=== PATIENT | male | born 1965 | race Caucasian/White ===

== ENCOUNTER 2024-10-18 14:02 | Emergency (ER) | payer OTHER, SELFPAY ==
[2024-10-18 14:05] VITALS: BP 142/84
--- NOTE | 2024-10-18 15:41 | ED.GENMED ---
History of Present Illness
General
Chief Complaint: Flank Pain
Time Seen by Provider: 10/18/24 15:31
History of Present Illness
History of Present Illness:
58-year-old male presents the emergency department for evaluation of left flank pain that began yesterday. He notes he had increased indigestion and abdominal discomfort as well as diarrhea for the early part of this week, the symptoms seem to
improve. He attributed the symptoms to his recent increase in Mounjaro dosing. Pain occasionally radiates toward the pelvis, no urinary voiding symptoms. No fevers or chills.
Review of Systems
Review of Systems
Allergies reviewed?: Yes
All Other Systems: ROS reviewed and negative except as documented in HPI and ROS
Phy Exam
Physical Exam
Physical Exam:
GEN: Well appearing, NAD, WDWN
HEENT: Oral mucosa moist, no scleral icterus
Cardiac: Regular rate
Lung: No respiratory distress, no tachypnea
Abdomen: Soft, mild left flank tenderness, no anterior abdominal tenderness
MSK: No gross deformity or injuries
Skin: Good color, no pallor or jaundice, no rashes
Neuro: AO x3, moves all extremities freely
Psych: Calm, cooperative
Course
Orders/Labs/Results
Orders:
Orders
10/18/24 15:48
Ketorolac [Toradol] 15 mg IV NOW STA
10/18/24 15:59
CBC/With Diff [Complete Blood Count/With Diff] Urgent
Comprehensive Metabolic Panel Urgent
Lipase Urgent
10/18/24 16:06
Urinalysis Reflex To Culture Urgent
Date Specimen was Collected: 10/18/24
Time Specimen was Collected: 16:05
Urine Microscopic Reflex Cult Urgent
10/18/24 16:36
CT Abd/pel Without Iv Or Oral Urgent
Comment:
Reason For Exam: L flank pain
Abnormal Lab Results
10/18/24 10/18/24
15:59 16:06
RBC 4.54 L 10^6/uL
(4.70-6.10)
Absolute Monos (auto) 0.7 H 10^3/uL
(0.1-0.6)
Monocytes % 11.3 H %
(1.7-9.3)
Glucose 134 H mg/dl
(70-99)
Urine Ketones 3+ A
(Negative)
Ur Occult Blood Reflex 4+ A
(Negative)
Urine RBC 50-60 A /HPF
(0-2)
Urine Bacteria (Reflex) Few A
(Negative)
Urine Glucose 4+ A
(Negative)
10/18/24 15:59
10/18/24 15:59
Vital Signs
Initial and Last Documented VS:
Initial Vital Signs
Temp Pulse Resp BP Pulse Ox
98.1 F 73 16 142/84 100
10/18/24 14:05 10/18/24 14:05 10/18/24 14:05 10/18/24 14:05 10/18/24 14:05
Last Documented Vital Signs
Temp Pulse Resp BP Pulse Ox
98.1 F 76 18 119/74 96
10/18/24 14:05 10/18/24 17:17 10/18/24 17:17 10/18/24 18:25 10/18/24 17:17
MDM/Problems Addressed
MDM/Problems Addressed:
Imaging reveals a 3 mm distal ureteral stone, patient without signs of urine infection clinically well. Toradol improved his pain dramatically. Will be discharged for expectant management, supportive care discussed
*Critical Care Note
Total Time (30-74mins, 75-104mins- exclusive of procedures): Not Applicable
ED Attending Note
-
Portions of this chart may have been created with voice recognition software.� Occasional wrong word or��sound alike� substitutions may have occurred due to the inherent limitations of voice recognition software.
Discharge Plan
Departure
Patient Disposition: Home (Routine Discharge)
Date of Disposition: 10/18/24
Time of Disposition: 18:07
Patient with high blood pressure during this ER visit?: No
Discharge Problem:
Ureterolithiasis
Instructions: Kidney Stones (DC)
Prescriptions:
New
oxycodone 5 mg tablet
5 mg PO Q8H PRN (Reason: Pain) Qty: 10 0RF
ketorolac 10 mg tablet
10 mg PO Q8H PRN (Reason: Pain) Qty: 15 0RF
Rx Instructions:
maximum total duration of 5 days from all oral, intranasal, or parenteral formulations
tamsulosin [Flomax] 0.4 mg capsule
0.4 mg PO HS Qty: 10 0RF
Referrals:
Otoniel Narvaez DO [Family Provider] -
Interventions
Interventions:
*Risk Screen - Suicide Last Done: 10/18/24 14:06
*General Assessment Last Done: 10/18/24 15:52
*Neglect/Abuse Screening Last Done: 10/18/24 14:06
*ED- Fall Risk Assessment Last Done: 10/18/24 15:52
*ED COVID-19 Vaccine History Last Done: 10/18/24 15:52
*Nursing Disposition Last Done: 10/18/24 18:28
CL-[place] Assessment Last Done: 10/18/24 16:03
ED-Male Genitourinary Assessment Last Done: 10/18/24 16:03
Discharge Date and Time
Discharge Date/Time: 10/18/24 18:30
Print Language: BENGALI
[2024-10-18 15:52] VITALS: BMI 28.7
[2024-10-18] MEDS: TORADOL 15 MG IV (16:07)
[2024-10-18 16:10] LABS: % Basophils 0.3 % (0-2); % Eosinophils 0.2 % (0-6); % Immature Granulocytes 0.3 % (0-0.5); % Lymphocytes 20.8 % (20.5-51.1); % Monocytes 11.3 % (1.7-9.3); % Neutrophils 67.1 % (42.2-75.2); Absolute Lymphocytes 1.3 10^3/uL (1.2-3.4); Absolute Monocytes 0.7 10^3/uL (0.1-0.6); Hematocrit 40.8 % (39.0-52.0); Hemoglobin 13.8 g/dL (13.0-18.0); Mean Corp Hgb Conc. 33.8 g/dL (33.0-37.0); Mean Corpuscular Hgb 30.4 pg (27.0-31.0); Mean Corpuscular Volume 89.9 fL (80.0-94.0); Mean Platelet Volume 8.4 fL (7.4-10.4); Nucleated Red Blood Cells % 0 % (-); Platelet Count 249 10^3/uL (130-400); Red Blood Cell Count 4.54 10^6/uL (4.70-6.10); Red Cell Dist. Width 13.4 % (11.5-14.5)
[2024-10-18 16:26] LABS: ALT (SGPT) 32 U/L (0-50); AST (SGOT) 29 U/L (17-59); Alkaline Phosphatase 90 U/L (38-126); Blood Urea Nitrogen 19 mg/dl (9-20); Calcium 9.4 mg/dl (8.4-10.2); Carbon Dioxide 26 mmol/L (22-30); Chloride 101 mmol/L (98-107); Estimated Creatinine Clearance 84 ml/min; Glucose 134 mg/dl (70-99); Lipase 193 U/L (23-300); Sodium 140 mmol/L (135-145); Total Bilirubin 0.8 mg/dl (0.2-1.3); Total Protein 6.8 g/dl (6.3-8.2); eGFR > 60.00
[2024-10-18 16:28] LABS: Urine Albumin Negative (Neg - Trace); Urine Bilirubin Negative (Negative); Urine Character Clear (Clear); Urine Color Yellow; Urine Glucose 4+ (Negative); Urine Ketone 3+ (Negative); Urine Leukocyte Negative (Negative); Urine Nitrite Negative (Negative); Urine Occult Blood 4+ (Negative); Urine Specific Gravity 1.015 (<1.030); Urine Urobilinogen Negative (Neg - 1+)
[2024-10-18 16:39] LABS: Urine Squamous Cell 0-2 /LPF (Few)
[2024-10-18 16:40] LABS: Urine Bacteria Few (Negative); Urine Red Blood Cell 50-60 /HPF (0-2); Urine White Cell 0-2 /HPF (0-5)
[2024-10-18 17:17] VITALS: BP 119/70
[2024-10-18 18:25] VITALS: BP 119/74
== END 2024-10-18 18:30 | disposition home or self-care (01) ==
LOC: EMR 14:02
PROVIDERS: EMERGENCY PHYSICIAN Emergency Medicine; FAMILY PHYSICIAN Family Medicine
DX: N13.2 Hydronephrosis with renal and ureteral calculous obstruction (principal); Z79.899 Other long term (current) drug therapy
CPT/HCPCS: 96374; 99284; 74176; 80053; 81003; 81015; 83690; 85025

== ENCOUNTER 2024-12-24 15:32 | Emergency (ER) | payer OTHER, SELFPAY ==
[2024-12-24 15:32] VITALS: BMI 28.4
[2024-12-24 15:37] VITALS: BP 141/79
[2024-12-24 18:13] VITALS: BP 133/68
--- NOTE | 2024-12-24 18:18 | ED.GENMED ---
History of Present Illness
General
Chief Complaint: Skin Surface Trauma
Time Seen by Provider: 12/24/24 18:02
History of Present Illness
History of Present Illness:
59-year-old male presents to the emergency department for evaluation of a chin laceration sustained a piece of glass fell and struck him in the face. Bleeding is now controlled. Not on blood thinners. Last tetanus is unknown
Review of Systems
Review of Systems
Allergies reviewed?: Yes
All Other Systems: ROS reviewed and negative except as documented in HPI and ROS
Phy Exam
Physical Exam
Physical Exam:
GEN: Well appearing, NAD, WDWN
HEENT: Oral mucosa moist, no scleral icterus. 2 cm curvilinear laceration to the left anterior chin with no active bleeding, no bony deformity
Cardiac: Regular rate
Lung: No respiratory distress, no tachypnea
MSK: No gross deformity or injuries
Skin: Good color, no pallor or jaundice, no rashes
Neuro: AO x3, moves all extremities freely
Psych: Calm, cooperative
Course
Vital Signs
Initial and Last Documented VS:
Initial Vital Signs
Temp Pulse Resp BP Pulse Ox
98.5 F 80 16 141/79 100
12/24/24 15:37 12/24/24 15:37 12/24/24 15:37 12/24/24 15:37 12/24/24 15:37
Last Documented Vital Signs
Temp Pulse Resp BP Pulse Ox
98.5 F 74 16 133/68 100
12/24/24 18:13 12/24/24 18:13 12/24/24 18:13 12/24/24 18:13 12/24/24 18:13
Procedures
Laceration Closure
Left chin:
Status of Wound: clean
Size of Wound in cm: 2
Description of Wound Edges: sharp
Preparation: cleaned with saline
Wound exploration: explored to base- no FB
Type of Closure: Dermabond-skin glue
MDM/Problems Addressed
MDM/Problems Addressed:
Relatively linear wound repaired with glue, patient declined tetanus update
*Pulse Oximetry
Patient hypoxic: no
Comment: 100% on room air
*Critical Care Note
Total Time (30-74mins, 75-104mins- exclusive of procedures): Not Applicable
ED Attending Note
-
Portions of this chart may have been created with voice recognition software.� Occasional wrong word or��sound alike� substitutions may have occurred due to the inherent limitations of voice recognition software.
Discharge Plan
Departure
Patient Disposition: Home (Routine Discharge)
Date of Disposition: 12/24/24
Time of Disposition: 18:19
Patient with high blood pressure during this ER visit?: No
Discharge Problem:
Chin laceration
Instructions: Laceration Repair With Glue (DC)
Prescriptions:
No Action
metformin 500 mg Tablet
500 mg PO BID
atorvastatin 80 mg Tablet
80 mg PO HS
lisinopril 20 mg Tablet
20 mg PO DAILY
aspirin 162 mg Tablet,Delayed Release (Dr/Ec)
162 mg PO DAILY
Jardiance 10 mg Tablet
10 mg PO DAILY
Mounjaro 5 mg/0.5 mL Pen Injector
5 mg SC QWEEK
Referrals:
UNKNOWN - PT DOES,NOT KNOW [Family Provider]
Activity Restrictions/Additional Instructions:
Do not wash the wound for the rest of tonight, after that time you may wash your face as you normally would
Glue will dissolve in 5-7 days
Interventions
Interventions:
*Risk Screen - Suicide Last Done: 12/24/24 15:37
*General Assessment Last Done: 12/24/24 15:37
*Neglect/Abuse Screening Last Done: 12/24/24 16:51
*ED- Fall Risk Assessment Last Done: 12/24/24 16:51
*Nursing Disposition Last Done: 12/24/24 18:33
ED-Skin Assessment Last Done: 12/24/24 16:51
Discharge Date and Time
Discharge Date/Time: 12/24/24 18:33
Print Language: LATVIAN
== END 2024-12-24 18:33 | disposition home or self-care (01) ==
LOC: EMR 15:32
PROVIDERS: EMERGENCY PHYSICIAN Student in an Organized Health Care Education/Training Program
DX: S01.81XA Laceration without foreign body of other part of head, initial encounter (principal); W25.XXXA Contact with sharp glass, initial encounter; Z79.82 Long term (current) use of aspirin
CPT/HCPCS: 99282; 12011